=== PATIENT | female | born 1995 | race Caucasian/White ===

== ENCOUNTER → 2022-12-04 11:00 | Outpatient (CLI) | payer OTHER, SELFPAY ==
--- NOTE | 2022-12-04 | DI.RAD.S_ITS ---
PROCEDURE: XR LUMBAR SPINE 2-3V INDICATIONS: Other specified arthritis, unspecified site TECHNIQUE: 3 views of the lumbar spine were acquired. COMPARISON: None. FINDINGS: Bones: 5 [id number] vertebrae are present. There is normal bony alignment. No vertebral body compression fractures. No suspicious bony lesions. Soft tissues: Overlying bowel gas pattern is normal. There are couple calcific densities projecting to the area of the right kidney. IMPRESSION: 1. No acute osseous abnormality. 2. Question right renal stones. Consider renal ultrasound or CT KUB for further evaluation. Dictated by: Jaya Clark M.D. on 12/04/2022 at 14:38 Approved by: Jaya Clark M.D. on 12/04/2022 at 14:40
== END ==
PROVIDERS: Referring Provider Chiropractor; Visit Provider Chiropractor
DX: M13.80 Other specified arthritis, unspecified site (principal)
CPT/HCPCS: 72100